=== PATIENT | female | born 1965 | race Caucasian/White ===

== ENCOUNTER → 2018-10-20 | Outpatient (REF) | payer OTHER ==
[~2018-10-20] MED LIST: CELE1CAP4 PO; CENTTAB47 PO; GABA-843 PO; GABA-845 PO; GLUC1CAP9 PO; MULT1TAB8 PO; MYLASUS16 PO; OMEP20CA4 PO; [UNRECOGNIZED DRUG - CODE] PO
== END ==
LOC: M SFHCLERA 10:21
PROVIDERS: ATTEND Nurse Practitioner Family
DX: J02.9 Acute pharyngitis, unspecified (principal)

== ENCOUNTER → 2021-05-04 | Outpatient (CLI) | payer OTHER ==
[~2021-05-04] MED LIST changes: +GABA-282 PO; +GABA-283 PO; -GABA-843 PO; -GABA-845 PO; +OMEP1CAP73 PO; -OMEP20CA4 PO
== END ==
LOC: M WHC 06:51
PROVIDERS: ATTEND Family Medicine
DX: Z12.31 Encounter for screening mammogram for malignant neoplasm of breast (principal)

== ENCOUNTER 2022-01-10 14:29 | Outpatient (RCR) | payer OTHER ==
[~2022-01-10 14:29] MED LIST changes: +ACET650T61 PO; +ATOR1TAB21 PO; +CHLO125TA PO; +CIDA500T2 PO; +MELO15TA28 PO; +QC F0.52 PO; +VITMTA PO
== END 2022-01-28 ==
LOC: M PT 14:29
PROVIDERS: ATTEND Orthopaedic Surgery Adult Reconstructive Orthopaedic Surgery
DX: M17.0 Bilateral primary osteoarthritis of knee (principal)

== ENCOUNTER → 2022-01-15 | Outpatient (CLI) | payer OTHER | LOC: M RAD 14:54 | PROVIDERS: ATTEND Orthopaedic Surgery Adult Reconstructive Orthopaedic Surgery | DX: M17.0 Bilateral primary osteoarthritis of knee (principal) ==

== ENCOUNTER 2022-01-29 08:09 | Observation (INO) | payer OTHER ==
[2022-01-29] VITALS (7 sets, daily range): BP systolic 112–140; BP diastolic 67–84
[~2022-01-29] VITALS: Ht 175.3 cm; Wt 87.5 kg
[~2022-01-29 08:09] MED LIST changes: +ACETAMINOPHEN 500 MG TAB PO ONE; +NAPROXEN 250 MG TAB PO ONE; +NS 1,000 ML IV ONE; +PREGABALIN 25 MG CAP (LYRICA) PO ONE; +ROPIVA 125MG/EPINEPH 0.25MG/CLONID 40MCG/KETOR 15MG IN NS 50ML SYRINGE PA ONE; +dexameTHASONE 4 MG/ML 1ML VIAL (J1100 PER 1MG) IV ONE
[2022-01-29] MEDS ORDERED: LR 1,000 ML IV SCH ×3 (09:30→15:05)
[2022-01-29] MEDS ORDERED: LIDOCAINE 2% 100MG/5ML SDV (FOR ANES.) As Ordered ONE (10:51)
[2022-01-29] MEDS ORDERED: ONDANSETRON 4MG 2ML VIAL As Ordered ONE (10:51)
[2022-01-29] MEDS ORDERED: dexameTHASONE 4 MG/ML 1ML VIAL (J1100 PER 1MG) As Ordered ONE (10:51)
[2022-01-29] MEDS ORDERED: propofoL 200 MG/20 ML VIAL As Ordered ONE (10:51)
[2022-01-29] MEDS ORDERED: MIDAZOLAM INJ 2MG/2ML VIAL (J2250 PER 1MG) As Ordered ONE (10:51)
[2022-01-29] MEDS ORDERED: fentaNYL 250 MCG/5 ML INJECTION As Ordered ONE (10:51)
[2022-01-29] MEDS ORDERED: METOCLOPRAMIDE INJ 10MG/2ML VIAL (J2765 PER 1) As Ordered ONE (10:51)
[2022-01-29] MEDS ORDERED: TRANEXAMIC ACID 100 MG/ML 10ML VIAL As Ordered ONE (11:19)
[2022-01-29] MEDS ORDERED: BUPIVACAINE HCL 0.5% 30ML VIAL As Ordered ONE (12:07)
[2022-01-29] MEDS ORDERED: ceFAZolin 2 GM/D5W 50 ML IV BAG (J0690 PER 500MG) As Ordered ONE (12:32)
[2022-01-29] MEDS ORDERED: VASOPRESSIN INJ 20 UNITS/ML VIAL As Ordered ONE (13:19)
[2022-01-29] MEDS ORDERED: propofoL 500 MG/50 ML VIAL As Ordered ONE (13:23)
[2022-01-29] MEDS ORDERED: ONDANSETRON 4MG 2ML VIAL IV PRN ×2 (14:50→15:05)
[2022-01-29] MEDS ORDERED: HYDROMORPHONE HCL 0.5 MG/ 0.5 ML SYRINGE (J1170 PER 1) IV PRN (14:50)
[2022-01-29] MEDS ORDERED: oxyCODONE 5MG TAB PO PRN ×3 (14:50→15:05)
[2022-01-29] MEDS ORDERED: fentaNYL 100 MCG/2 ML INJECTION IV PRN (14:50)
[2022-01-29] MEDS ORDERED: SENNA 8.6 MG TAB (SENOKOT) PO PRN (15:05)
[2022-01-29] MEDS ORDERED: traMADol 50 MG TAB PO PRN (15:05)
[2022-01-29] MEDS: ACETAMINOPHEN TAB 650MG DOSE (2X325MG) PO SCH ×2 (16:54→20:16)
[2022-01-29] MEDS: ASPIRIN 81MG ENTERIC TABLET PO SCH (20:14)
[2022-01-29] MEDS: NAPROXEN 250 MG TAB PO SCH (20:15)
[2022-01-29] MEDS: DOCUSATE SODIUM 100MG CAPSULE PO SCH (20:16)
[2022-01-29] MEDS: ceFAZolin SOD 2 GM in IV 1 EA IV SCH (20:17)
[2022-01-30 01:00] VITALS: BP 113/69
[2022-01-30] MEDS: ACETAMINOPHEN TAB 650MG DOSE (2X325MG) PO SCH ×2 (03:00→09:55)
[2022-01-30] MEDS: ceFAZolin SOD 2 GM in IV 1 EA IV SCH (04:33)
[2022-01-30 05:00] VITALS: BP 115/69
[2022-01-30 06:08] LABS: HEMATOCRIT 39.5 % (36.0-47.0); MEAN CORPUSCULAR HEMOGLOBIN 29.8 pg (27.0-33.0); MEAN CORPUSCULAR HGB CONC 32.9 g/dl (32.0-36.5); MEAN CORPUSCULAR VOLUME 90.6 fl (80.0-96.0); PLATELET COUNT, AUTOMATED 330 10^3/uL (150-450); RED BLOOD COUNT 4.36 10^6/uL (4.00-5.40); WHITE BLOOD COUNT 15.7 10^3/uL (4.0-10.0)
[2022-01-30 06:37] LABS: BLOOD UREA NITROGEN 15 MG/DL (7-18); CARBON DIOXIDE LEVEL 28 MEQ/L (21-32); CHLORIDE LEVEL 104 MEQ/L (98-107); CREATININE FOR GFR 0.76 MG/DL (0.55-1.30); GLOMERULAR FILTRATION RATE > 60.0 (>51); GLUCOSE, FASTING 102 MG/DL (70-100); POTASSIUM SERUM 3.9 MEQ/L (3.5-5.1); SODIUM LEVEL 140 MEQ/L (136-145)
[2022-01-30 09:00] VITALS: BP 114/65
[2022-01-30] MEDS ORDERED: CHLORTHALIDONE 25 MG TAB PO SCH (09:00)
[2022-01-30] MEDS ORDERED: FERROUS SULFATE 325MG TAB PO SCH (09:00)
[2022-01-30] MEDS ORDERED: ASCORBIC ACID 500 MG TAB PO SCH (09:00)
[2022-01-30] MEDS ORDERED: MULTIVITAMINS/MINERALS THERAP 1 TAB PO SCH (09:00)
[2022-01-30] MEDS ORDERED: ATORVASTATIN 20 MG TAB PO SCH (09:00)
[2022-01-30] MEDS: DOCUSATE SODIUM 100MG CAPSULE PO SCH (09:54)
[2022-01-30] MEDS: NAPROXEN 250 MG TAB PO SCH (09:54)
[2022-01-30] MEDS: ASPIRIN 81MG ENTERIC TABLET PO SCH (09:54)
[2022-01-30] MEDS ORDERED: ASPI81TAEC PO (10:47)
[2022-01-30] MEDS ORDERED: OXYC1TAB23 PO (12:49)
== END 2022-01-30 13:28 | disposition home or self-care (01) ==
LOC: M SDC 08:09 → M MSPAV 08:10 → M SDC 01-30 13:28
PROVIDERS: ADMIT Internal Medicine; ATTEND Internal Medicine
DX: M17.11 Unilateral primary osteoarthritis, right knee (principal); I10 Essential (primary) hypertension; K21.9 Gastro-esophageal reflux disease without esophagitis; F41.9 Anxiety disorder, unspecified; G47.33 Obstructive sleep apnea (adult) (pediatric); Z79.899 Other long term (current) drug therapy; Z79.82 Long term (current) use of aspirin; Z88.1 Allergy status to other antibiotic agents
CPT/HCPCS: 27447; 36415; 73560; 80048; 85027; 88304; 88311; 96365; 96366; 97116; 97161; 97165; 97530; C1776; J0690; J1100; J2250; J2405; J2765; J3010; S2900

== ENCOUNTER → 2022-02-08 | Outpatient (REF) | payer OTHER ==
[~2022-02-08] MED LIST changes: -ACETAMINOPHEN 500 MG TAB PO ONE; +ASPI81TAEC PO; -NAPROXEN 250 MG TAB PO ONE; -NS 1,000 ML IV ONE; +OXYC1TAB23 PO; -PREGABALIN 25 MG CAP (LYRICA) PO ONE; -ROPIVA 125MG/EPINEPH 0.25MG/CLONID 40MCG/KETOR 15MG IN NS 50ML SYRINGE PA ONE; -dexameTHASONE 4 MG/ML 1ML VIAL (J1100 PER 1MG) IV ONE
[2022-02-08 16:50] LABS: HEMATOCRIT 41.5 % (36.0-47.0); HEMOGLOBIN 13.8 g/dl (12.0-15.5); MEAN CORPUSCULAR HGB CONC 33.3 g/dl (32.0-36.5); MEAN CORPUSCULAR VOLUME 90.2 fl (80.0-96.0); PLATELET COUNT, AUTOMATED 501 10^3/uL (150-450); WHITE BLOOD COUNT 7.9 10^3/uL (4.0-10.0)
== END ==
LOC: M LAB REF 14:41
PROVIDERS: ATTEND Orthopaedic Surgery Adult Reconstructive Orthopaedic Surgery
DX: Z48.02 Encounter for removal of sutures (principal)

== ENCOUNTER → 2022-02-11 | Outpatient (CLI) | payer OTHER | LOC: M SOG 08:00 | PROVIDERS: ATTEND Orthopaedic Surgery Adult Reconstructive Orthopaedic Surgery | DX: M17.0 Bilateral primary osteoarthritis of knee (principal) ==

== ENCOUNTER → 2022-08-08 | Outpatient (CLI) | payer OTHER | LOC: M WHC 07:45 | PROVIDERS: ATTEND Nurse Practitioner Primary Care | DX: Z12.31 Encounter for screening mammogram for malignant neoplasm of breast (principal) ==

== ENCOUNTER → 2022-10-23 | Outpatient (CLI) | payer OTHER | LOC: M SOG 07:56 | PROVIDERS: ATTEND Orthopaedic Surgery | DX: Z47.1 Aftercare following joint replacement surgery (principal); Z96.651 Presence of right artificial knee joint ==

== ENCOUNTER → 2023-08-11 | Outpatient (CLI) | payer OTHER ==
[~2023-08-11] MED LIST changes: -GABA-283 PO; +GABA-284 PO
== END ==
LOC: M WHC 07:52
PROVIDERS: ATTEND Nurse Practitioner Family
DX: Z12.31 Encounter for screening mammogram for malignant neoplasm of breast (principal); R92.323 Mammographic fibroglandular density, bilateral breasts

== ENCOUNTER → 2024-08-11 | Outpatient (CLI) | payer OTHER ==
[~2024-08-11] MED LIST changes: +GABA-1172 PO; -GABA-282 PO
== END ==
LOC: M WHC 13:44
PROVIDERS: ATTEND Student in an Organized Health Care Education/Training Program
DX: Z12.31 Encounter for screening mammogram for malignant neoplasm of breast (principal)